=== PATIENT | male | born 1965 | race African-American/Black ===

== ENCOUNTER 2018-11-11 12:39 | Inpatient (IN) | payer OTHER | END 2018-11-15 12:40 | disposition other institution (70) | LOC: YASAS 12:39 → Y6N 16:30 ==

== ENCOUNTER 2018-11-15 12:44 | Inpatient (IN) | payer OTHER ==
[2018-11-15] MEDS ORDERED: P-EPHED 60MG/TRIPROLIDI 2.5MG TABLET PO PRN (15:30)
[2018-11-15] MEDS ORDERED: LOPERAMIDE HCL 2 MG CAPSULE PO PRN (15:30)
[2018-11-15] MEDS ORDERED: MENTHOL/PHENOL 1 EACH UD MM PRN (15:30)
[2018-11-15] MEDS ORDERED: hydrOXYzine PAMOATE 50 MG CAPSULE (FP) PO PRN (15:30)
[2018-11-15] MEDS ORDERED: MAGNESIUM HYDROX 2400MG/30ML ORAL SUSPENSION 30 ML CUP PO PRN (15:30)
[2018-11-15] MEDS ORDERED: NICOTINE POLACRILEX 4 MG GUM BUC PRN (15:30)
[2018-11-15] MEDS ORDERED: guaiFENesin 200 MG/10 ML 10 ML UNIT-DOSE CUPS PO PRN (15:30)
[2018-11-15] MEDS ORDERED: IBUPROFEN 400 MG TABLET (FP) PO PRN (15:30)
[2018-11-15] MEDS ORDERED: ACETAMINOPHEN 325 MG TABLET (FP) PO PRN (15:30)
[2018-11-15] MEDS ORDERED: MAGNESIUM CITRATE 300 ML BOTTLE PO PRN (15:30)
--- NOTE | 2018-11-15 15:43 | HP ---
JUDY [facility] Rehab Assess/Revision - Admission History Ad[facility]hab [facility] - Findings Detox History & Physical reviewed: Yes Concur with findings: Yes Inpatient Rehab Admission - Rehab Decision to Admit Inpatient rehab admission?: Yes - Initial Determination Are CD services needed?: Yes Free of communicable disease: Yes Not in need of hospitalization: Yes - Rehab Admission Criteria Previous failed treatment: Yes Poor recovery environment: Yes Comorbidities: Yes Lacks judgement: Yes Patient is meeting Inpatient Rehab admission criteria:: Yes
[2018-11-15] MEDS: MELATONIN 5 MG TABLETS PO PRN (21:40)
[2018-11-15] MEDS: risperiDONE 2 MG TABLET PO SCH (21:40)
[2018-11-15] MEDS: THIAMINE HCL 100 MG TABLET (FP) PO SCH (21:40)
[2018-11-16] MEDS: risperiDONE 2 MG TABLET PO SCH ×2 (10:30→21:09)
[2018-11-16] MEDS: NICOTINE 21 MG/24 HOURS TOPICAL PATCH TD SCH ×2 (10:30→10:40)
[2018-11-16] MEDS: PRENATAL VITAMINS W/ FOLIC ACID TABLET (FP) PO SCH (10:30)
[2018-11-16] MEDS: MELATONIN 5 MG TABLETS PO PRN (21:09)
[2018-11-16] MEDS: THIAMINE HCL 100 MG TABLET (FP) PO SCH (21:09)
[2018-11-16] MEDS: MAG HYDROX/AL HYDROX/SIMETH 30 ML UNIT-DOSE CUP PO PRN (21:40)
[2018-11-17] MEDS: risperiDONE 2 MG TABLET PO SCH ×2 (11:00→21:17)
[2018-11-17] MEDS: PRENATAL VITAMINS W/ FOLIC ACID TABLET (FP) PO SCH (11:00)
[2018-11-17] MEDS: NICOTINE 21 MG/24 HOURS TOPICAL PATCH TD SCH (12:42)
[2018-11-17] MEDS: THIAMINE HCL 100 MG TABLET (FP) PO SCH (21:16)
[2018-11-17] MEDS: MELATONIN 5 MG TABLETS PO PRN (21:16)
[2018-11-17] MEDS: MAG HYDROX/AL HYDROX/SIMETH 30 ML UNIT-DOSE CUP PO PRN (23:05)
[2018-11-18] MEDS: NICOTINE 21 MG/24 HOURS TOPICAL PATCH TD SCH (11:08)
[2018-11-18] MEDS: PRENATAL VITAMINS W/ FOLIC ACID TABLET (FP) PO SCH (11:09)
[2018-11-18] MEDS: risperiDONE 2 MG TABLET PO SCH ×2 (11:09→21:50)
[2018-11-18] MEDS: MELATONIN 5 MG TABLETS PO PRN (21:50)
[2018-11-18] MEDS: THIAMINE HCL 100 MG TABLET (FP) PO SCH (21:50)
[2018-11-19] MEDS: NICOTINE 21 MG/24 HOURS TOPICAL PATCH TD SCH (10:59)
[2018-11-19] MEDS: PRENATAL VITAMINS W/ FOLIC ACID TABLET (FP) PO SCH (10:59)
[2018-11-19] MEDS: risperiDONE 2 MG TABLET PO SCH ×2 (10:59→21:19)
[2018-11-19] MEDS: THIAMINE HCL 100 MG TABLET (FP) PO SCH (21:19)
[2018-11-19] MEDS: MELATONIN 5 MG TABLETS PO PRN (21:19)
[2018-11-20 07:29] VITALS: BP 153/93; PULSE 65; TEMP 97.5
--- NOTE | 2018-11-20 09:01 | PN ---
S Progress Note Note: Psychiatric nurse practitioner note: Patient scheduled for discharge today. A 30 day prescription of Risperdal 2mg BID ( #60 tablets) was sent to [facility], [place] [address].
--- NOTE | 2018-11-20 13:05 | PN ---
[facility] Progress Note Note: PATIENT REQUESTED TO SIGN OUT AMA. PATIENT STATED " I AM LEAVING TO [place] AND HAVE TO GO HOME TODAY". PATIENT ENCOURAGED TO COMPLETE TREATMENT TO PREVENT RELAPSE AND EXPLAINED RISK FACTORS ASSOCIATED WITH SIGNING OUT AMA. PATIENT REFUSED TO STAY IN TREATMENT AND INFORMED PUBLIC SERVICES LIBRARIAN HE WILL FOLLOW UP WITH A PROGRAM IN IN. PATIENT ENCOURAGED TO ATTEND GROUP MEETINGS WITH NA/AA AND FOLLOW UP WITH PCP TO CONTINUE MEDICAL MANAGEMENT. Vital Signs Period Temp Pulse Resp BP Sys/Juarez Pulse Ox Last 24 Hr 97.5 F 65 18-18 153/93 Ambulatory Orders Risperidone [Risperdal] 2 mg PO BID 11/11/18 Risperidone [Risperdal -] 2 mg PO BID #60 tablet 11/20/18
== END 2018-11-20 09:03 | disposition left against medical advice (07) | DRG 770 ==
LOC: YASAS 12:44 → Y3W 12:45
PROVIDERS: ADMIT Neuromusculoskeletal Medicine & OMM; ATTEND Neuromusculoskeletal Medicine & OMM
PROC: HZ42ZZZ Group Counseling for Substance Abuse Treatment, Cognitive-Behavioral (ICD-10-PCS; principal; 2018-11-15)
DX: F10.20 Alcohol dependence, uncomplicated (principal); F14.20 Cocaine dependence, uncomplicated; F12.20 Cannabis dependence, uncomplicated
CPT/HCPCS: 71046-TC-FY

== ENCOUNTER 2018-12-11 09:00 | Inpatient (IN) | payer SELFPAY ==
[2018-12-11 09:48] VITALS: BMI 25.2
--- NOTE | 2018-12-11 10:53 | HP ---
CIWA Score Nausea/Vomitin Muscle Tremors: 2 Anxiety: 2 Agitation: 2 Paroxysmal Sweats: 1-Minimal Palms Moist Orientation: 0-Oriented Tacttile Disturbances: 1-Very Mild Itch/Numbness Auditory Disturbances: 1-Very Mild Visual Disturbances: 0-None Headache: 2-Mild CIWA-Ar Total Score: 13 - Admission Criteria OASAS Guidelines: Admission for Medically Managed Detox: Requires at least one of the followin. CIWA greater than 12 2. Seizures within the past 24 hours 3. Delirium tremens within the past 24 hours 4. Hallucinations within the past 24 hours 5. Acute intervention needed for co occurring medical disorder 6. Acute intervention needed for co occurring psychiatric disorder 7. Severe withdrawal that cannot be handled at a lower level of care (continued vomiting, continued diarrhea, abnormal vital signs) requiring intravenous medication and/or fluids 8. Admission ROS S - HPI Chief Complaint: i need help to stop drinking alcohol,heroin,cocaine Allergies/Adverse Reactions: Allergies Allergy/AdvReac Type Severity Reaction Status Date / Time No Known Allergies Allergy Verified 12/11/18 09:38 History of Present Illness: this 53 years old male with heroin,alcohol and cocaine dependence,seeking detox, withdrawal symptom, last detox 11/11/18 to [facility] ,rehab 11/15/18 to 11/20/18 not completed due to fmily emrgency nicotine dependence 6 cigarette,does not want nicotine replacement longest sobriety 6 years ago bipolar disorder,schizophrenia,ptsd seen in [facility] plan for rehab after detox Exam Limitations: No Limitations - Ebola screening Have you traveled outside of the country in the last 21 days: No (N) Have you had contact with anyone from an Ebola affected area: No Do you have a fever: No - Review of Systems Constitutional: Chills, Loss of Appetite, Malaise, Night Sweats, Changes in sleep, Weakness, Unintentional Wgt. Loss EENT: reports: Tearing, Nose Congestion Respiratory: reports: No Symptoms reported Cardiac: reports: No Symptoms Reported GI: reports: Diarrhea, Nausea, Vomiting, Abdominal cramping : reports: No Symptoms Reported Musculoskeletal: reports: Back Pain, Joint Pain, Muscle Pain, Joint Stiffness Integumentary: reports: Dryness Neuro: reports: Headache, Tremors Endocrine: reports: No Symptoms Reported Hematology: reports: No Symptoms Reported Psychiatric: reports: No Sypmtoms Reported, Judgement Intact, Mood/Affect Appropiate, Orientated x3, Anxious, Depressed, other (bipolar,schizophrenia,ptsd ) Patient History - Patient Medical History Hx Anemia: No Hx Asthma: No Hx Chronic Obstructive Pulmonary Disease (COPD): No Hx Cancer: No Hx Cardiac Disorders: No Hx Congestive Heart Failure: No Hx Hypertension: Yes (no med) Hx Hypercholesterolemia: No Hx Pacemaker: No HX Cerebrovascular Accident: No Hx Seizures: No Hx Dementia: No Hx Diabetes: No Hx Gastrointestinal Disorders: No Hx Liver Disease: No Hx Genitourinary Disorders: No Hx Sexually Transmitted Disorders: No Hx Renal Disease (ESRD): No Hx Thyroid Disease: No Hx Human Immunodeficiency Virus (HIV): No (last 11/19 negative) Hx Hepatitis C: No Hx Depression: No Hx Suicide Attempt: No Hx Bipolar Disorder: Yes Hx Schizophrenia: Yes Other Medical History: no suicidal,no homicidal - Patient Surgical History Past Surgical History: No Hx Neurologic Surgery: No Hx Cataract Extraction: No Hx Cardiac Surgery: No Hx Lung Surgery: No Hx Breast Surgery: No Hx Breast Biopsy: No Hx Abdominal Surgery: No Hx Appendectomy: No Hx Cholecystectomy: No Hx Genitourinary Surgery: No Hx Section: No Hx Orthopedic Surgery: No Anesthesia Reaction: No - PPD History Previous Implant?: Yes Documented Results: Positive w/proof Results: cxr11/15/18 neg PPD to be Administered?: No - Smoking Cessation Smoking history: Current every day smoker Have you smoked in the past 12 months: Yes Cigars Per Day: 10 Hx Chewing Tobacco Use: No Initiated information on smoking cessation: Yes 'Breaking Loose' booklet given: 12/11/18 - Substance & Tx. History Hx Alcohol Use: Yes Hx Substance Use: Yes Substance Use Type: Alcohol, Cocaine, Heroin, Marijuana Hx Substance Use Treatment: Yes ([facility] 11/11/18 to 11/15/18,rehab 11/15/18 to not completed) - Substances abused Heroin Substance route: Inhalation Frequency: Daily Amount used: 2 bags Age of first use: 21 Date of last use: 11/10/18 Crack Substance route: Smoking Frequency: Daily Amount used: $200 Age of first use: 21 Date of last use: 11/10/18 Alcohol Substance route: Oral Frequency: Daily Amount used: 1 pint Age of first use: 13 Date of last use: 11/10/18 Marijuana/Hashish Substance route: Smoking Frequency: Daily Amount used: 40$ Age of first use: 13 Date of last use: 11/11/18 Cocaine Substance route: Inhalation Frequency: Daily Amount used: 1/2 gram Age of first use: 16 Date of last use: 12/10/18 Family Disease History - Family Disease History Family History: Denies Admission Physical Exam [facility] - Vital Signs Vital Signs: Vital Signs - 24 hr 12/11/18 09:35 Temperature 98.3 F Pulse Rate 51 L Respiratory 17 Rate Blood Pressure 141/87 - Physical General Appearance: Yes: Moderate Distress, Tremorous, Irritable, Sweating, Anxious HEENTM: Yes: Normal ENT Inspection, Normocephalic, RAJAN, Pharynx Normal Respiratory: Yes: Within Normal Limits, Lungs Clear, Normal Breath Sounds Neck: Yes: Within Normal Limits, Supple, Trachea in good position Breast: Yes: Within Normal Limits Cardiology: Yes: S1, S2, Bradycardia Abdominal: Yes: Within Normal Limits, Normal Bowel Sounds, Non Tender, Flat, Soft Genitourinary: Yes: Within Normal Limits Back: Yes: Muscle Spasm Musculoskeletal: Yes: full range of Motion, Back pain, Muscle Pain Extremities: Yes: Tremors Neurological: Yes: top collar maker II-XII NML intact, Fully Oriented, Alert, Motor Strength 5/5 Integumentary: Yes: Dry Lymphatic: Yes: Within Normal Limits - Diagnostic (1) Alcohol dependence with uncomplicated withdrawal Current Visit: Yes Status: Acute (2) Dehydration Current Visit: No Status: Acute (3) Schizophrenia Current Visit: Yes Status: Chronic (4) Weight loss Current Visit: No Status: Acute (5) Cannabis dependence Current Visit: Yes Status: Chronic (6) Cocaine dependence Current Visit: Yes Status: Chronic Qualifiers: Substance use status: uncomplicated Qualified Code(s): F14.20 - Cocaine dependence, uncomplicated (7) Heroin abuse Current Visit: Yes Status: Acute (8) Weight loss Current Visit: Yes Status: Acute (9) Nicotine dependence Current Visit: Yes Status: Chronic Cleared for Admission [facility] - Detox or Rehab [facility] Level of Care: Medically Managed Detox Regimen/Protocol: Librium Breathalyzer - Breathalyzer Breathalyzer: 0 Urine Drug Screen - Test Device Lot number: [id number] Expiration date: 08/31/20 - Control Is test valid?: Yes - Results Drug screen NEGATIVE: No Urine drug screen results: ZION-Cocaine, BZO-Benzodiazepines Inpatient Rehab Admission - Rehab Decision to Admit Inpatient rehab admission?: No
[2018-12-11] MEDS ORDERED: MAG HYDROX/AL HYDROX/SIMETH 30 ML UNIT-DOSE CUP PO PRN (11:03)
[2018-12-11] MEDS ORDERED: MAGNESIUM CITRATE 300 ML BOTTLE PO PRN (11:03)
[2018-12-11] MEDS ORDERED: hydrOXYzine PAMOATE 25 MG CAPSULE (FP) PO PRN (11:03)
[2018-12-11] MEDS ORDERED: MAGNESIUM HYDROX 2400MG/30ML ORAL SUSPENSION 30 ML CUP PO PRN (11:03)
[2018-12-11] MEDS ORDERED: IBUPROFEN 400 MG TABLET (FP) PO PRN (11:03)
[2018-12-11] MEDS ORDERED: MENTHOL/PHENOL 1 EACH UD MM PRN (11:03)
[2018-12-11] MEDS ORDERED: BISMUTH SUBSALICYLATE 262 MG/15 ML BTL PO PRN (11:03)
[2018-12-11] MEDS ORDERED: METHOCARBAMOL 500 MG TABLET PO PRN (11:03)
[2018-12-11] MEDS ORDERED: chlordiazePOXIDE HCL 25 MG CAPSULE PO PRN (11:03)
[2018-12-11] MEDS ORDERED: ACETAMINOPHEN 325 MG TABLET (FP) PO PRN ×2 (11:03)
[2018-12-11] MEDS ORDERED: NICOTINE POLACRILEX 2 MG GUM BUC PRN (11:03)
[2018-12-11] MEDS ORDERED: cloNIDine HCL 0.1 MG TABLET PO PRN (12:01)
--- NOTE | 2018-12-11 13:18 | PN ---
[facility] Progress Note Note: 53 years old male admitted for alcohol withdrawal stabilization no history of hypertension be elevation upon admission offer librium prn and order clonidin 0.1 mg po prn continue bp monitoring
[2018-12-11 14:59] LABS: ALBUMIN 3.5 g/dl (3.4-5.0); BILIRUBIN,TOTAL 0.3 mg/dL (0.2-1); BLOOD UREA NITROGEN 9.1 mg/dL (7-18); CALCIUM 8.6 mg/dL (8.5-10.1); CREATININE 1.1 mg/dL (0.55-1.3); TOT PROT 7.1 g/dl (6.4-8.2)
[2018-12-11 15:14] LABS: HEMATOCRIT 37.8 % (35.4-49); HEMOGLOBIN 12.1 GM/dL (11.7-16.9); MCH 27.4 pg (25.7-33.7); MEAN CELL VOLUME 85.6 fl (80-96); MEAN PLT VOLUME 11.1 fl (7.5-11.1); PLATELET COUNT 140 K/MM3 (134-434); RBC 4.42 M/mm3 (4.00-5.60); RDW 14.3 % (11.9-15.9); WHITE BLOOD COUNT 4.7 K/mm3 (4.0-10.0)
--- NOTE | 2018-12-11 15:38 | CONSULT ---
[facility] Psychiatric Consult - Data Date of interview: 12/11/18 Admission source: [facility] Identifying data: Readmission to [facility] for this 53 y/o AA male self- referred for detoxification (heroin, alcohol, cannabis, cocaine). Examined at [address] [place] [address]. Patient is hostile, easily irritable and marginally cooperative. Mr Victoria declines to provide personal information. Demographic data are extracted from recent records at [facility] : patient is , a father of six, homeless, unemployed and supported on undisclosed means. Substance Abuse History: Patient declines to discuss his substance abuse profile in this session. Information is taken from the chart ([facility] report) : Smoking history: Current every day smoker. Have you smoked in the past 12 months: Yes. Cigars Per Day: 10. Hx Chewing Tobacco Use: No. Initiated information on smoking cessation: Yes. 'Breaking Loose' booklet given: . - Substance & Tx. History. Hx Alcohol Use: Yes. Hx Substance Use: Yes. Substance Use Type: Alcohol, Cocaine, Heroin, Marijuana. Hx Substance Use Treatment: Yes ([facility] 11/11/18 to 11/15/18,rehab 11/15/18 to 11/20/18 not completed). - Substances abused. Heroin. Substance route: Inhalation. Frequency: Daily. Amount used: 2 bags. Age of first use: 21. Date of last use : 11/10/18. Crack. Substance route: Smoking. Frequency: Daily. Amount used: $200. Age of first use: 21. Date of last use: 11/10/18. Alcohol. Substance route: Oral. Frequency: Daily. Amount used: 1 pint. Age of first use: 13. Date of last use: 11/10/18. Marijuana/Hashish. Substance route: Smoking. Frequency: Daily. Amount used: 40$. Age of first use: 13. Date of last use: 11/11/18. Cocaine. Substance route: Inhalation. Frequency: Daily. Amount used: 1/2 gram. Age of first use: 16. Date of last use: Medical History: Patient denies medical problems. Endorses good general health. Psychiatric History: Patient reveals a past history of a psychiatric hospitalization at [facility]. He endorses the diagnoses of " Bipolar Disorder with Schizophrenia and PTSD ". Mr Victoria denies going to a psychiatrist in the community for OPD care. Patient was discharged (AMA) from [facility] in November 2018 on a regimen of risperidone 2 mg po bid. Non-adherence to medications is reported by the patient. Denies history of suicide attempts. Physical/Sexual Abuse/Trauma History: No information. Patient declines to answer questions. Additional Comment: Urine drug screen results: ZION-Cocaine, BZO- Benzodiazepines. Noted. Mental Status Exam - Mental Status Exam Alert and Oriented to: Time, Place, Person Cognitive Function: Grossly Intact Patient Appearance: Unkempt, Disheveled Mood: Angry, Hostile, Withdrawn, Irritable Affect: Mood Congruent, Blunted Patient Behavior: Passive, Fatigued, Uncooperative Speech Pattern: Clear (patient is coherent but he simply refuses to engage in conversation ; provides brief, sporadic answers) Voice Loudness: Normal Thought Process: Goal Oriented Hallucinations: Denies Suicidal Ideation: Denies Homicidal Ideation: Denies Insight/Judgement: Poor Sleep: Well Appetite: Good Gait/Station: Other (seen resting in bed ; not observed walking, by this policy writer , since arrival on the unit) Psychiatric Findings - Problem List ([place] 1, 2,3) (1) Alcohol dependence with uncomplicated withdrawal Current Visit: Yes Status: Acute (2) Heroin dependence Current Visit: Yes Status: Chronic (3) Cannabis dependence Current Visit: Yes Status: Chronic (4) Cocaine dependence Current Visit: Yes Status: Chronic Qualifiers: Substance use status: uncomplicated Qualified Code(s): F14.20 - Cocaine dependence, uncomplicated (5) Nicotine dependence Current Visit: Yes Status: Chronic (6) Substance induced mood disorder Current Visit: Yes Status: Suspected (7) Schizophrenia Current Visit: Yes Status: Chronic (8) Non-compliance Current Visit: Yes Status: Chronic - Initial Treatment Plan Initial Treatment Plan: Psychoeducation. Sleep hygiene. Detoxification. Patient did verbalize request for risperdal. Side effects/benefits are briefly explained to the patient. " I never had any problems with risperdal ". Risperdal 1 mg po bid. Ordered. Patient verbally consented to resuming risperdal. Support. NA/AA meetings. Observation.
[2018-12-11] MEDS: chlordiazePOXIDE HCL 25 MG CAPSULE PO SCH ×2 (16:41→22:06)
[2018-12-11 18:53] LABS: EPI CELLS 6.9 /HPF (0-5/HPF); HYALINE CASTS 35 /lpf (0-8); PH,URINE 5.5 (5.0-8.0); URINE APPEARANCE TURBID; URINE BACTERIA 18.5 /hpf (NEGATIVE); URINE BILIRUBIN NEGATIVE (NEGATIVE); URINE COLOR YELLOW; URINE GLUCOSE (UA) NEGATIVE (NEGATIVE); URINE KETONE NEGATIVE (NEGATIVE); URINE LEUK ESTERASE TRACE (NEGATIVE); URINE NITRITE NEGATIVE (NEGATIVE); URINE PROTEIN NEGATIVE (NEGATIVE); URINE RBC 3 /hpf (0-4); URINE WBC 7 /hpf (0-5)
[2018-12-11 19:50] LABS: URINE CRYSTALS AMORPHOUS URATES /hpf
[2018-12-11] MEDS: THIAMINE HCL 100 MG TABLET (FP) PO SCH (22:06)
[2018-12-11] MEDS: risperiDONE 1 MG TABLET (FP) PO SCH (22:06)
[2018-12-11] MEDS: MELATONIN 5 MG TABLETS PO PRN (22:07)
[2018-12-12] MEDS: chlordiazePOXIDE HCL 25 MG CAPSULE PO SCH ×4 (05:53→22:12)
[2018-12-12] MEDS: NICOTINE 21 MG/24 HOURS TOPICAL PATCH TD SCH (10:44)
[2018-12-12] MEDS: risperiDONE 1 MG TABLET (FP) PO SCH ×2 (10:44→22:12)
[2018-12-12] MEDS: PRENATAL VITAMINS W/ FOLIC ACID TABLET (FP) PO SCH (10:44)
--- NOTE | 2018-12-12 15:26 | PN ---
[facility] CIWA - CIWA Score Nausea/Vomitin-No Nausea/No Vomiting Muscle Tremors: None Anxiety: 2 Agitation: 0-Normal Activity Paroxysmal Sweats: 3 Orientation: 0-Oriented Tacttile Disturbances: 2-Mild Itch/Numbness/Burn Auditory Disturbances: 2-Mild Harshness/Frighten Visual Disturbances: 2-Mild Sensitivity Headache: 0-None Present CIWA-Ar Total Score: 11 S Progress Note (SOAP) Subjective: Sweating, Body Aches, Fatigue. Objective: PATIENT A & O X 3. IN NO ACUTE DISTRESS. PATIENT REPORTS HISTORY OF HTN,, BUT DENIES HISTORY OF MEDICATION FOR HTN. 12/12/18 15:25 Vital Signs Temperature 96.4 F L 12/12/18 13:37 Pulse Rate 84 12/12/18 13:37 Respiratory Rate 18 12/12/18 13:37 Blood Pressure 126/78 12/12/18 13:37 O2 Sat by Pulse Oximetry (%) Laboratory Tests 12/11/18 12/11/18 12/11/18 11:40 11:40 11:40 WBC 4.7 RBC 4.42 Hgb 12.1 Hct 37.8 MCV 85.6 MCH 27.4 MCHC 32.0 RDW 14.3 Plt Count 140 MPV 11.1 Sodium 139 Potassium 4.0 Chloride 105 Carbon Dioxide 30 Anion Gap 3 L BUN 9.1 Creatinine 1.1 Est GFR (CKD-EPI)AfAm 88.98 Est GFR (CKD-EPI)NonAf 76.77 Random Glucose 88 Calcium 8.6 Total Bilirubin 0.3 AST 19 ALT 21 Alkaline Phosphatase 56 Total Protein 7.1 Albumin 3.5 Urine Color Urine Appearance Urine pH Ur Specific [place] Urine Protein Urine Glucose (UA) Urine Ketones Urine Blood Urine Nitrite Urine Bilirubin Urine Urobilinogen Ur Leukocyte Esterase Urine WBC (Auto) Urine RBC (Auto) Urine Casts (Auto) U Epithel Cells (Auto) Urine Crystals (Auto) Urine Bacteria (Auto) RPR Titer Nonreactive 12/11/18 16:37 WBC RBC Hgb Hct MCV MCH MCHC RDW Plt Count MPV Sodium Potassium Chloride Carbon Dioxide Anion Gap BUN Creatinine Est GFR (CKD-EPI)AfAm Est GFR (CKD-EPI)NonAf Random Glucose Calcium Total Bilirubin AST ALT Alkaline Phosphatase Total Protein Albumin Urine Color Yellow Urine Appearance Turbid Urine pH 5.5 Ur Specific [place] 1.037 H Urine Protein Negative Urine Glucose (UA) Negative Urine Ketones Negative Urine Blood Negative Urine Nitrite Negative Urine Bilirubin Negative Urine Urobilinogen 1.0 Ur Leukocyte Esterase Trace Urine WBC (Auto) 7 Urine RBC (Auto) 3 Urine Casts (Auto) 35 U Epithel Cells (Auto) 6.9 Urine Crystals (Auto) Amorphous urates Urine Bacteria (Auto) 18.5 RPR Titer LABS NOTED. 12/12/18 15:28 Assessment: 12/12/18 15:27 WITHDRAWAL SYMPTOMS. HYPERTENSION. 12/12/18 15:29 Plan: CONTINUE DETOX. CLONIDINE, 0.1 MG PO PRN ELEVATED BLOOD PRESSURE. CONTINUE TO MONITOR BLOOD PRESSURE.
[2018-12-12] MEDS: THIAMINE HCL 100 MG TABLET (FP) PO SCH (22:12)
[2018-12-13] MEDS: chlordiazePOXIDE HCL 25 MG CAPSULE PO SCH ×2 (05:10→10:54)
[2018-12-13] MEDS: PRENATAL VITAMINS W/ FOLIC ACID TABLET (FP) PO SCH (10:54)
[2018-12-13] MEDS: risperiDONE 1 MG TABLET (FP) PO SCH ×2 (10:54→21:37)
[2018-12-13] MEDS: NICOTINE 21 MG/24 HOURS TOPICAL PATCH TD SCH (10:54)
--- NOTE | 2018-12-13 15:23 | PN ---
S CIWA - CIWA Score Nausea/Vomitin-No Nausea/No Vomiting Muscle Tremors: None Anxiety: 2 Agitation: 0-Normal Activity Paroxysmal Sweats: 3 Orientation: 0-Oriented Tacttile Disturbances: 2-Mild Itch/Numbness/Burn Auditory Disturbances: 0-None Visual Disturbances: 2-Mild Sensitivity Headache: 0-None Present CIWA-Ar Total Score: 9 [facility] Progress Note (SOAP) Subjective: Sweating, Body Aches, Fatigue. Objective: PATIENT A & O X 3. IN NO ACUTE DISTRESS. 12/13/18 15:21 Vital Signs Temperature 99.0 F 12/13/18 13:51 Pulse Rate 69 12/13/18 13:51 Respiratory Rate 18 12/13/18 13:51 Blood Pressure 176/92 H 12/13/18 13:51 O2 Sat by Pulse Oximetry (%) Laboratory Tests 12/11/18 12/11/18 12/11/18 11:40 11:40 11:40 WBC 4.7 RBC 4.42 Hgb 12.1 Hct 37.8 MCV 85.6 MCH 27.4 MCHC 32.0 RDW 14.3 Plt Count 140 MPV 11.1 Sodium 139 Potassium 4.0 Chloride 105 Carbon Dioxide 30 Anion Gap 3 L BUN 9.1 Creatinine 1.1 Est GFR (CKD-EPI)AfAm 88.98 Est GFR (CKD-EPI)NonAf 76.77 Random Glucose 88 Calcium 8.6 Total Bilirubin 0.3 AST 19 ALT 21 Alkaline Phosphatase 56 Total Protein 7.1 Albumin 3.5 Urine Color Urine Appearance Urine pH Ur Specific [place] Urine Protein Urine Glucose (UA) Urine Ketones Urine Blood Urine Nitrite Urine Bilirubin Urine Urobilinogen Ur Leukocyte Esterase Urine WBC (Auto) Urine RBC (Auto) Urine Casts (Auto) U Epithel Cells (Auto) Urine Crystals (Auto) Urine Bacteria (Auto) RPR Titer Nonreactive 12/11/18 16:37 WBC RBC Hgb Hct MCV MCH MCHC RDW Plt Count MPV Sodium Potassium Chloride Carbon Dioxide Anion Gap BUN Creatinine Est GFR (CKD-EPI)AfAm Est GFR (CKD-EPI)NonAf Random Glucose Calcium Total Bilirubin AST ALT Alkaline Phosphatase Total Protein Albumin Urine Color Yellow Urine Appearance Turbid Urine pH 5.5 Ur Specific [place] 1.037 H Urine Protein Negative Urine Glucose (UA) Negative Urine Ketones Negative Urine Blood Negative Urine Nitrite Negative Urine Bilirubin Negative Urine Urobilinogen 1.0 Ur Leukocyte Esterase Trace Urine WBC (Auto) 7 Urine RBC (Auto) 3 Urine Casts (Auto) 35 U Epithel Cells (Auto) 6.9 Urine Crystals (Auto) Amorphous urates Urine Bacteria (Auto) 18.5 RPR Titer LABS NOTED. Assessment: 12/13/18 15:22 WITHDRAWAL SYMPTOMS. ELEVATED BLOOD PRESSURE (INTERMITTENT). 12/13/18 15:22 Plan: CONTINUE DETOX. CONTINUE TO MONITOR BLOOD PRESSURE. PRN CLOINIDINE PO FOR ELEVATED BLOOD PRESSURE.
[2018-12-13] MEDS ORDERED: chlordiazePOXIDE HCL 10 MG CAPSULE PO PRN (17:00)
[2018-12-13] MEDS: chlordiazePOXIDE HCL 10 MG CAPSULE PO SCH ×2 (17:13→22:31)
[2018-12-13] MEDS: THIAMINE HCL 100 MG TABLET (FP) PO SCH (21:37)
[2018-12-13] MEDS: MELATONIN 5 MG TABLETS PO PRN (22:12)
[2018-12-14] MEDS: chlordiazePOXIDE HCL 10 MG CAPSULE PO SCH ×3 (06:47→17:33)
[2018-12-14] MEDS: NICOTINE 21 MG/24 HOURS TOPICAL PATCH TD SCH (11:30)
[2018-12-14] MEDS: PRENATAL VITAMINS W/ FOLIC ACID TABLET (FP) PO SCH (11:30)
[2018-12-14] MEDS: risperiDONE 1 MG TABLET (FP) PO SCH ×2 (11:31→22:31)
--- NOTE | 2018-12-14 15:08 | PN ---
S CIWA - CIWA Score Nausea/Vomitin-No Nausea/No Vomiting Muscle Tremors: None Anxiety: 1-Mildly Anxious Agitation: 0-Normal Activity Paroxysmal Sweats: No Perspiration Orientation: 0-Oriented Tacttile Disturbances: 1-Very Mild Itch/Numbness Auditory Disturbances: 0-None Visual Disturbances: 2-Mild Sensitivity Headache: 0-None Present CIWA-Ar Total Score: 4 [facility] Progress Note (SOAP) Subjective: Fatigue. Patient Reports that He Feels well Overall. Objective: PATIENT A & O X 3, OBSERVED AMBULATING ON UNIT UNASSISTED. IN NO ACUTE DISTRESS. 12/14/18 15:09 Vital Signs Temperature 98.3 F 12/14/18 13:17 Pulse Rate 55 L 12/14/18 13:17 Respiratory Rate 18 12/14/18 13:17 Blood Pressure 172/94 H 12/14/18 13:17 O2 Sat by Pulse Oximetry (%) Laboratory Tests 12/11/18 12/11/18 12/11/18 11:40 11:40 11:40 WBC 4.7 RBC 4.42 Hgb 12.1 Hct 37.8 MCV 85.6 MCH 27.4 MCHC 32.0 RDW 14.3 Plt Count 140 MPV 11.1 Sodium 139 Potassium 4.0 Chloride 105 Carbon Dioxide 30 Anion Gap 3 L BUN 9.1 Creatinine 1.1 Est GFR (CKD-EPI)AfAm 88.98 Est GFR (CKD-EPI)NonAf 76.77 Random Glucose 88 Calcium 8.6 Total Bilirubin 0.3 AST 19 ALT 21 Alkaline Phosphatase 56 Total Protein 7.1 Albumin 3.5 Urine Color Urine Appearance Urine pH Ur Specific [place] Urine Protein Urine Glucose (UA) Urine Ketones Urine Blood Urine Nitrite Urine Bilirubin Urine Urobilinogen Ur Leukocyte Esterase Urine WBC (Auto) Urine RBC (Auto) Urine Casts (Auto) U Epithel Cells (Auto) Urine Crystals (Auto) Urine Bacteria (Auto) RPR Titer Nonreactive 12/11/18 16:37 WBC RBC Hgb Hct MCV MCH MCHC RDW Plt Count MPV Sodium Potassium Chloride Carbon Dioxide Anion Gap BUN Creatinine Est GFR (CKD-EPI)AfAm Est GFR (CKD-EPI)NonAf Random Glucose Calcium Total Bilirubin AST ALT Alkaline Phosphatase Total Protein Albumin Urine Color Yellow Urine Appearance Turbid Urine pH 5.5 Ur Specific [place] 1.037 H Urine Protein Negative Urine Glucose (UA) Negative Urine Ketones Negative Urine Blood Negative Urine Nitrite Negative Urine Bilirubin Negative Urine Urobilinogen 1.0 Ur Leukocyte Esterase Trace Urine WBC (Auto) 7 Urine RBC (Auto) 3 Urine Casts (Auto) 35 U Epithel Cells (Auto) 6.9 Urine Crystals (Auto) Amorphous urates Urine Bacteria (Auto) 18.5 RPR Titer LABS NOTED. Assessment: 12/14/18 15:10 WITHDRAWAL SYMPTOMS. Plan: CONTINUE DETOX. CLONIDINE, 0.1 MG PO X 1 DOSE FOR ELEVATED BLOOD PRESSURE. PATIENT SCHEDULED FOR D/C TOMORROW.
[2018-12-14] MEDS ORDERED: cloNIDine HCL 0.1 MG TABLET PO ONE (15:10)
[2018-12-14] MEDS: MELATONIN 5 MG TABLETS PO PRN (22:31)
[2018-12-14] MEDS: THIAMINE HCL 100 MG TABLET (FP) PO SCH (22:31)
[2018-12-15 06:13] VITALS: BP 143/81; PULSE 51; TEMP 97.8
[2018-12-15] MEDS: chlordiazePOXIDE HCL 10 MG CAPSULE PO SCH (06:34)
--- NOTE | 2018-12-15 16:15 | DS ---
[facility] Detox Discharge Summary Admission Date: 12/11/18 Discharge Date: 12/15/18 - History Present History: Alcohol Dependence, Cannabis Dependence, Cocaine Dependence, Opioid Dependence Additional Comments: PATIENT LEFT DETOX UNIT EARLY IN AM PRIOR TO TIME OF ARRIVAL OF FIELD SERVICE ENGINEER ON DETOX UNIT. PRE-DISCHARGE MEDICAL ASSESSMENT UNABLE TO BE DONE. PER BUFF WHEEL FABRICATOR Shine ALEXIS, PATIENT REFERRED TO [facility] ([facility], [place]) FOR AFTERCARE. Pertinent Past History: HTN, Bipolar Disorder, Nicotine Dependence, Schizophrenia, P.T.S.D., Dehydration , Weight Loss. - Physical Exam Results Vital Signs: Vital Signs Temperature 97.8 F 12/15/18 06:13 Pulse Rate 51 L 12/15/18 06:13 Respiratory Rate 18 12/15/18 06:13 Blood Pressure 143/81 12/15/18 06:13 O2 Sat by Pulse Oximetry (%) Pertinent Admission Physical Exam Findings: WITHDRAWAL SYMPTOMS. Laboratory Tests 12/11/18 12/11/18 12/11/18 11:40 11:40 11:40 WBC 4.7 RBC 4.42 Hgb 12.1 Hct 37.8 MCV 85.6 MCH 27.4 MCHC 32.0 RDW 14.3 Plt Count 140 MPV 11.1 Sodium 139 Potassium 4.0 Chloride 105 Carbon Dioxide 30 Anion Gap 3 L BUN 9.1 Creatinine 1.1 Est GFR (CKD-EPI)AfAm 88.98 Est GFR (CKD-EPI)NonAf 76.77 Random Glucose 88 Calcium 8.6 Total Bilirubin 0.3 AST 19 ALT 21 Alkaline Phosphatase 56 Total Protein 7.1 Albumin 3.5 Urine Color Urine Appearance Urine pH Ur Specific [place] Urine Protein Urine Glucose (UA) Urine Ketones Urine Blood Urine Nitrite Urine Bilirubin Urine Urobilinogen Ur Leukocyte Esterase Urine WBC (Auto) Urine RBC (Auto) Urine Casts (Auto) U Epithel Cells (Auto) Urine Crystals (Auto) Urine Bacteria (Auto) RPR Titer Nonreactive 12/11/18 16:37 WBC RBC Hgb Hct MCV MCH MCHC RDW Plt Count MPV Sodium Potassium Chloride Carbon Dioxide Anion Gap BUN Creatinine Est GFR (CKD-EPI)AfAm Est GFR (CKD-EPI)NonAf Random Glucose Calcium Total Bilirubin AST ALT Alkaline Phosphatase Total Protein Albumin Urine Color Yellow Urine Appearance Turbid Urine pH 5.5 Ur Specific [place] 1.037 H Urine Protein Negative Urine Glucose (UA) Negative Urine Ketones Negative Urine Blood Negative Urine Nitrite Negative Urine Bilirubin Negative Urine Urobilinogen 1.0 Ur Leukocyte Esterase Trace Urine WBC (Auto) 7 Urine RBC (Auto) 3 Urine Casts (Auto) 35 U Epithel Cells (Auto) 6.9 Urine Crystals (Auto) Amorphous urates Urine Bacteria (Auto) 18.5 RPR Titer LABS NOTED. - Treatment Hospital Course: Detox Protocol Followed, Detoxed Safely, Responded well, Discharged Condition Good, Rehab Referral Accepted Patient has Accepted a Rehab Referral to: [facility] ([facility], [place]). - Medication Discharge Medications: Ambulatory Orders Risperidone [Risperdal -] 2 mg PO BID 12/11/18 - Diagnosis (1) Alcohol dependence with uncomplicated withdrawal Status: Acute (2) Dehydration Status: Acute (3) Heroin abuse Status: Acute (4) Weight loss Status: Acute (5) Weight loss Status: Acute (6) Cannabis dependence Status: Chronic (7) Cocaine dependence Status: Chronic Qualifiers: Substance use status: uncomplicated Qualified Code(s): F14.20 - Cocaine dependence, uncomplicated (8) Nicotine dependence Status: Chronic Qualifiers: Nicotine product type: cigarettes Substance use status: uncomplicated Qualified Code(s): F17.210 - Nicotine dependence, cigarettes, uncomplicated (9) Schizophrenia Status: Chronic Qualifiers: Schizophrenia type: unspecified Qualified Code(s): F20.9 - Schizophrenia, unspecified (10) Non-compliance Status: Chronic (11) Substance induced mood disorder Status: Suspected - AMA Did Patient Leave Against Medical Advice: No
== END 2018-12-15 07:00 | disposition home or self-care (01) | DRG 774 ==
LOC: YASAS 09:00 → Y3N 11:24
PROVIDERS: ADMIT Surgery; ATTEND Surgery
PROC: HZ2ZZZZ Detoxification Services for Substance Abuse Treatment (ICD-10-PCS; principal; 2018-12-11)
DX: F10.230 Alcohol dependence with withdrawal, uncomplicated (principal); F10.20 Alcohol dependence, uncomplicated; F14.20 Cocaine dependence, uncomplicated; F12.20 Cannabis dependence, uncomplicated; F17.210 Nicotine dependence, cigarettes, uncomplicated; F19.24 Other psychoactive substance dependence with psychoactive substance-induced mood disorder; F20.9 Schizophrenia, unspecified; I10 Essential (primary) hypertension; E86.0 Dehydration; R63.4 Abnormal weight loss; Z68.25 Body mass index [BMI] 25.0-25.9, adult; Z91.19 Patient's noncompliance with other medical treatment and regimen
CPT/HCPCS: 36415; 80053; 81003; 85027; 86593; J0735; J2794

== ENCOUNTER 2019-05-12 13:33 | Inpatient (IN) | payer OTHER ==
[2019-05-12 15:18] VITALS: BMI 25.3
--- NOTE | 2019-05-12 18:01 | HP ---
CIWA Score Nausea/Vomitin Muscle Tremors: 3 Anxiety: 3 Agitation: 3 Paroxysmal Sweats: 1-Minimal Palms Moist Orientation: 0-Oriented Tacttile Disturbances: 1-Very Mild Itch/Numbness Auditory Disturbances: 0-None Visual Disturbances: 0-None Headache: 2-Mild CIWA-Ar Total Score: 15 - Admission Criteria OASAS Guidelines: Admission for Medically Managed Detox: Requires at least one of the followin. CIWA greater than 12 2. Seizures within the past 24 hours 3. Delirium tremens within the past 24 hours 4. Hallucinations within the past 24 hours 5. Acute intervention needed for co occurring medical disorder 6. Acute intervention needed for co occurring psychiatric disorder 7. Severe withdrawal that cannot be handled at a lower level of care (continued vomiting, continued diarrhea, abnormal vital signs) requiring intravenous medication and/or fluids 8. Admitting History and Physical - Smoking History Smoking history: Current every day smoker Have you smoked in the past 12 months: Yes - Alcohol/Substance Use Hx Alcohol Use: Yes Admission ROS S - HPI Chief Complaint: i need help to stop drinking alcohol,cocaine,marijuna,heroin abused Allergies/Adverse Reactions: Allergies Allergy/AdvReac Type Severity Reaction Status Date / Time No Known Allergies Allergy Verified 05/12/19 15:13 History of Present Illness: this 53 years old male with alcohol,cocaine,marijuana,heroin abused,seeking detox, last detox 12/11/18 to 12/15/18 denied seizure denied syncope history of schizophrenia,ptsd nicotine dependence longest sobriety 4 years plan for rehab Exam Limitations: No Limitations - Ebola screening Have you traveled outside of the country in the last 21 days: No (N) Have you had contact with anyone from an Ebola affected area: No Do you have a fever: No - Review of Systems Constitutional: Loss of Appetite, Malaise, Night Sweats, Weakness, Unintentional Wgt. Loss EENT: reports: Nose Congestion Respiratory: reports: No Symptoms reported Cardiac: reports: No Symptoms Reported GI: reports: Nausea, Poor Fluid Intake, Indigestion : reports: No Symptoms Reported Musculoskeletal: reports: Back Pain, Muscle Pain Integumentary: reports: Bruising Neuro: reports: Headache, Tremors Endocrine: reports: No Symptoms Reported Hematology: reports: No Symptoms Reported Psychiatric: reports: No Sypmtoms Reported, Judgement Intact, Mood/Affect Appropiate, Orientated x3 Other Systems: Reviewed and Negative Patient History - Patient Medical History Hx Anemia: No Hx Asthma: No Hx Chronic Obstructive Pulmonary Disease (COPD): No Hx Cancer: No Hx Cardiac Disorders: No Hx Congestive Heart Failure: No Hx Hypertension: Yes (no med) Hx Hypercholesterolemia: No Hx Pacemaker: No HX Cerebrovascular Accident: No Hx Seizures: No Hx Dementia: No Hx Diabetes: No Hx Gastrointestinal Disorders: No Hx Liver Disease: No Hx Genitourinary Disorders: No Hx Sexually Transmitted Disorders: No Hx Renal Disease (ESRD): No Hx Thyroid Disease: No Hx Human Immunodeficiency Virus (HIV): No (last 11/19 negative) Hx Hepatitis C: No Hx Depression: No Hx Suicide Attempt: No Hx Bipolar Disorder: Yes Hx Schizophrenia: Yes Other Medical History: no suicidal,no homicidal - Patient Surgical History Past Surgical History: No Hx Neurologic Surgery: No Hx Cataract Extraction: No Hx Cardiac Surgery: No Hx Lung Surgery: No Hx Breast Surgery: No Hx Breast Biopsy: No Hx Abdominal Surgery: No Hx Appendectomy: No Hx Cholecystectomy: No Hx Genitourinary Surgery: No Hx Section: No Hx Orthopedic Surgery: No Anesthesia Reaction: No - PPD History Date: 11/13/18 Results: cxr11/15/18 neg PPD to be Administered?: No - Smoking Cessation Smoking history: Current every day smoker Have you smoked in the past 12 months: Yes Aproximately how many cigarettes per day: 10 Hx Chewing Tobacco Use: No Initiated information on smoking cessation: Yes 'Breaking Loose' booklet given: 05/12/19 - Substances abused Heroin Substance route: Inhalation Frequency: Daily Amount used: 2 bags Age of first use: 21 Date of last use: 05/10/19 Crack Substance route: Smoking Frequency: Daily Amount used: $200 Age of first use: 21 Date of last use: 11/10/18 Alcohol Substance route: Oral Frequency: Daily Amount used: 1 pint of Vodka Age of first use: 13 Date of last use: 05/11/19 Marijuana/Hashish Substance route: Smoking Frequency: Daily Amount used: 40$ Age of first use: 13 Date of last use: 11/11/18 Cocaine Substance route: Inhalation Frequency: Daily Amount used: 1/2-1 gram Age of first use: 16 Date of last use: 05/12/19 Admission Physical Exam BHS - Vital Signs Vital Signs: Vital Signs - 24 hr 05/12/19 15:15 Temperature 98.4 F Pulse Rate 68 Respiratory 16 Rate Blood Pressure 174/90 H - Physical General Appearance: Yes: Moderate Distress, Tremorous, Irritable, Sweating, Anxious HEENTM: Yes: Normal ENT Inspection, Pharynx Normal Respiratory: Yes: Lungs Clear, Normal Breath Sounds, No Respiratory Distress Neck: Yes: Within Normal Limits, Supple, Trachea in good position Breast: Yes: Within Normal Limits Cardiology: Yes: Within Normal Limits, Regular Rate, S1, S2 Abdominal: Yes: Within Normal Limits, Normal Bowel Sounds, Non Tender, Soft Genitourinary: Yes: Within Normal Limits Back: Yes: Muscle Spasm Musculoskeletal: Yes: Back pain, Muscle Pain Extremities: Yes: Tremors Integumentary: Yes: Within Normal Limits, Dry Lymphatic: Yes: Within Normal Limits - Diagnostic (1) Alcohol dependence with uncomplicated withdrawal Current Visit: No Status: Acute (2) Dehydration Current Visit: No Status: Acute (3) Heroin abuse Current Visit: No Status: Acute (4) Hypertension Current Visit: No Status: Acute (5) Weight loss Current Visit: No Status: Acute (6) Nicotine dependence Current Visit: No Status: Chronic Qualifiers: Nicotine product type: cigarettes Substance use status: uncomplicated Qualified Code(s): F17.210 - Nicotine dependence, cigarettes, uncomplicated (7) Schizophrenia Current Visit: No Status: Chronic Qualifiers: Schizophrenia type: unspecified Qualified Code(s): F20.9 - Schizophrenia, unspecified Cleared for Admission [facility] - Detox or Rehab [facility] Level of Care: Medically Managed (patient is aware isael urine for opiate negative,he will not get methadone) Detox Regimen/Protocol: Librium Breathalyzer - Breathalyzer Breathalyzer: 0 Urine Drug Screen - Test Device Lot number: [id number] Expiration date: 12/31/20 - Control Is test valid?: Yes - Results Drug screen NEGATIVE: No Urine drug screen results: THC-Marijuana, ZION-Cocaine Inpatient Rehab Admission - Rehab Decision to Admit Inpatient rehab admission?: No
[2019-05-12] MEDS ORDERED: MAGNESIUM CITRATE 300 ML BOTTLE PO PRN (18:23)
[2019-05-12] MEDS ORDERED: MAG HYDROX/AL HYDROX/SIMETH 30 ML UNIT-DOSE CUP PO PRN (18:23)
[2019-05-12] MEDS ORDERED: IBUPROFEN 400 MG TABLET (FP) PO PRN (18:23)
[2019-05-12] MEDS ORDERED: MENTHOL/PHENOL 1 EACH UD MM PRN (18:23)
[2019-05-12] MEDS ORDERED: BISMUTH SUBSALICYLATE 524 MG/30 ML UD PO PRN (18:23)
[2019-05-12] MEDS ORDERED: ACETAMINOPHEN 325 MG TABLET (FP) PO PRN ×2 (18:23)
[2019-05-12] MEDS ORDERED: MAGNESIUM HYDROX 2400MG/30ML ORAL SUSPENSION 30 ML CUP PO PRN (18:23)
[2019-05-12] MEDS ORDERED: chlordiazePOXIDE HCL 25 MG CAPSULE PO PRN (18:23)
[2019-05-12] MEDS ORDERED: hydrOXYzine PAMOATE 25 MG CAPSULE (FP) PO PRN (18:23)
[2019-05-12] MEDS: chlordiazePOXIDE HCL 25 MG CAPSULE PO SCH ×2 (19:28→22:51)
[2019-05-12] MEDS: METHOCARBAMOL 500 MG TABLET PO PRN (19:28)
[2019-05-12] MEDS: THIAMINE HCL 100 MG TABLET (FP) PO SCH (22:51)
[2019-05-12] MEDS: MELATONIN 5 MG TABLETS PO PRN (22:52)
[2019-05-13 10:24] LABS: HEMATOCRIT 35.5 % (35.4-49); HEMOGLOBIN 11.4 GM/dL (11.7-16.9); MCH 27.4 pg (25.7-33.7); MCHC 32.2 g/dl (32.0-35.9); MEAN CELL VOLUME 85.1 fl (80-96); MEAN PLT VOLUME 11.1 fl (7.5-11.1); PLATELET COUNT 184 K/MM3 (134-434); RBC 4.18 M/mm3 (4.00-5.60); RDW 13.9 % (11.9-15.9); WHITE BLOOD COUNT 4.1 K/mm3 (4.0-10.0)
[2019-05-13 10:35] LABS: ALBUMIN 3.1 g/dl (3.4-5.0); BILIRUBIN,TOTAL 0.6 mg/dL (0.2-1); BLOOD UREA NITROGEN 13.6 mg/dL (7-18); CALCIUM 8.8 mg/dL (8.5-10.1); CREATININE 0.9 mg/dL (0.55-1.3); POTASSIUM 4.2 mmol/L (3.5-5.1)
[2019-05-13] MEDS: PRENATAL VITAMINS W/ FOLIC ACID TABLET (FP) PO SCH (11:13)
[2019-05-13] MEDS: chlordiazePOXIDE HCL 25 MG CAPSULE PO SCH ×4 (11:13→22:58)
[2019-05-13] MEDS: METHOCARBAMOL 500 MG TABLET PO PRN (11:15)
--- NOTE | 2019-05-13 17:49 | PN ---
S CIWA - CIWA Score Nausea/Vomitin-Mild Nausea/No Vomiting Muscle Tremors: 4-Moderate,w/Arms Extend Anxiety: 3 Agitation: 3 Paroxysmal Sweats: 3 Orientation: 0-Oriented Tacttile Disturbances: 0-None Auditory Disturbances: 0-None Visual Disturbances: 0-None Headache: 0-None Present CIWA-Ar Total Score: 14 BHS Progress Note (SOAP) Subjective: Interrupted sleep Objective: 05/13/19 17:48 Last Vital Signs Temp Pulse Resp BP Pulse Ox 98.8 F 63 17 163/102 H 05/13/19 14:25 05/13/19 14:25 05/13/19 14:25 05/13/19 14:25 Elevated b/p: has htn, on medication Laboratory Tests 05/13/19 05/13/19 05/13/19 07:40 07:40 07:50 WBC 4.1 RBC 4.18 Hgb 11.4 L Hct 35.5 MCV 85.1 MCH 27.4 MCHC 32.2 RDW 13.9 Plt Count 184 D MPV 11.1 Sodium 141 Potassium 4.2 Chloride 109 H Carbon Dioxide 29 Anion Gap 3 L BUN 13.6 Creatinine 0.9 Est GFR (CKD-EPI)AfAm 113.41 Est GFR (CKD-EPI)NonAf 97.85 Random Glucose 94 Calcium 8.8 Total Bilirubin 0.6 AST 15 ALT 17 Alkaline Phosphatase 46 Total Protein 6.0 L Albumin 3.1 L RPR Titer Nonreactive Labs reviewed Assessment: 05/13/19 17:52 Withdrawal sxs HTN noted, uncontrolled (patient has htn but not on medication) Plan: Continue detox Encouraged PO water intake HTN: start norvasc 10 mg PO daily, first dose now, monitor b/p
[2019-05-13] MEDS ORDERED: amLODIPine BESYLATE 10 MG TABLET (FP) PO ONE (17:50)
[2019-05-13] MEDS: THIAMINE HCL 100 MG TABLET (FP) PO SCH (22:58)
[2019-05-14] MEDS: chlordiazePOXIDE HCL 25 MG CAPSULE PO SCH ×4 (07:02→22:35)
[2019-05-14] MEDS: METHOCARBAMOL 500 MG TABLET PO PRN ×2 (11:09→17:33)
[2019-05-14] MEDS: amLODIPine BESYLATE 10 MG TABLET (FP) PO SCH (11:10)
[2019-05-14] MEDS: PRENATAL VITAMINS W/ FOLIC ACID TABLET (FP) PO SCH (11:11)
--- NOTE | 2019-05-14 11:53 | CONSULT ---
[facility] Psychiatric Consult - Data Date of interview: 05/14/19 Admission source: Self-referred Identifying data: Mr Victoria is a 53 years old Black male, father of 6 children, unemployed, homeless seeking detox treatment for alcohol, opioid, cocaine and cannabis Substance Abuse History: Reports history of alcohol, heroin, cocaine and marijuana use. Refr to addivtion counselor's summary for further information Medical History: Sinificant for hypertension. Smokes 10 cigarettes daily Psychiatric History: Patient reveals a past history of a psychiatric hospitalization at [facility]. He endorses the diagnoses of " Bipolar Disorder with Schizophrenia and PTSD ". Mr Victoria denies going to a psychiatrist in the community for OPD care. Patient was discharged (AMA) from [facility] in November 2018 on a regimen of risperidone 2 mg po bid. Non-adherence to medications is reported by the patient. Denies history of suicide attempts. Physical/Sexual Abuse/Trauma History: History prior arrests and incarceration. Served 15 years in [facility]
--- NOTE | 2019-05-14 13:45 | PN ---
S CIWA - CIWA Score Nausea/Vomitin-No Nausea/No Vomiting Muscle Tremors: 3 Anxiety: 3 Agitation: 3 Paroxysmal Sweats: 3 Orientation: 0-Oriented Tacttile Disturbances: 0-None Auditory Disturbances: 0-None Visual Disturbances: 0-None Headache: 0-None Present CIWA-Ar Total Score: 12 S Progress Note (SOAP) Subjective: sweats shakes chills low back pain i need my psych meds Objective: 05/14/19 13:45 Vital Signs Temperature 98.2 F 05/14/19 09:56 Pulse Rate 67 05/14/19 09:56 Respiratory Rate 18 05/14/19 09:56 Blood Pressure 143/93 05/14/19 09:56 O2 Sat by Pulse Oximetry (%) Laboratory Tests 05/13/19 05/13/19 05/13/19 07:40 07:40 07:50 WBC 4.1 RBC 4.18 Hgb 11.4 L Hct 35.5 MCV 85.1 MCH 27.4 MCHC 32.2 RDW 13.9 Plt Count 184 D MPV 11.1 Sodium 141 Potassium 4.2 Chloride 109 H Carbon Dioxide 29 Anion Gap 3 L BUN 13.6 Creatinine 0.9 Est GFR (CKD-EPI)AfAm 113.41 Est GFR (CKD-EPI)NonAf 97.85 Random Glucose 94 Calcium 8.8 Total Bilirubin 0.6 AST 15 ALT 17 Alkaline Phosphatase 46 Total Protein 6.0 L Albumin 3.1 L RPR Titer Nonreactive labs noted aaox3 ambulating no acute distress Assessment: 05/14/19 13:45 withdrawal sx Plan: continue detox psych ordered
--- NOTE | 2019-05-14 14:25 | CONSULT ---
[facility] Psychiatric Consult - Data Date of interview: 05/14/19 Psychiatric History: Patient was approached twice at bedside. He told underwriter mortgage loan:" I cannot talk right now, my back is hurting". Please reconsult when patient is able to be interviewed
[2019-05-14] MEDS: THIAMINE HCL 100 MG TABLET (FP) PO SCH (22:34)
[2019-05-14] MEDS: MELATONIN 5 MG TABLETS PO PRN (22:35)
[2019-05-15] MEDS ORDERED: chlordiazePOXIDE HCL 10 MG CAPSULE PO PRN
[2019-05-15] MEDS: chlordiazePOXIDE HCL 10 MG CAPSULE PO SCH ×2 (06:41→10:55)
[2019-05-15 09:50] VITALS: BP 152/86; PULSE 68; TEMP 98.2
[2019-05-15] MEDS: PRENATAL VITAMINS W/ FOLIC ACID TABLET (FP) PO SCH (10:55)
[2019-05-15] MEDS: amLODIPine BESYLATE 10 MG TABLET (FP) PO SCH (10:55)
--- NOTE | 2019-05-15 12:05 | PN ---
S Progress Note Note: pt is refusing to take librium for detox. Pt was approached by the disciplinary team and encouraged pt the purpose of detox. D/T his refusal, pt was told he will be discharged and referral provided. Pt did not hesitate and was escorted off the unit.
--- NOTE | 2019-05-15 14:43 | DS ---
[facility] Detox Discharge Summary Admission Date: 05/12/19 Discharge Date: 05/15/19 - History Present History: Alcohol Dependence - Physical Exam Results Vital Signs: Vital Signs Temperature 98.2 F 05/15/19 09:49 Pulse Rate 68 05/15/19 09:49 Respiratory Rate 18 05/15/19 09:49 Blood Pressure 152/86 05/15/19 09:49 O2 Sat by Pulse Oximetry (%) - Treatment Hospital Course: Rehab Referral Accepted - Medication Discharge Medications: Ambulatory Orders Risperidone [Risperdal -] 2 mg PO BID 12/11/18 - Diagnosis (1) Alcohol dependence with uncomplicated withdrawal Status: Chronic (2) Hypertension Status: Chronic Qualifiers: Hypertension type: essential hypertension Qualified Code(s): I10 - Essential (primary) hypertension (3) Cannabis dependence Status: Chronic (4) Cocaine dependence Status: Chronic Qualifiers: Substance use status: uncomplicated Qualified Code(s): F14.20 - Cocaine dependence, uncomplicated (5) Nicotine dependence Status: Chronic Qualifiers: Nicotine product type: cigarettes Substance use status: uncomplicated Qualified Code(s): F17.210 - Nicotine dependence, cigarettes, uncomplicated (6) Schizophrenia Status: Chronic Qualifiers: Schizophrenia type: unspecified Qualified Code(s): F20.9 - Schizophrenia, unspecified (7) Substance induced mood disorder Status: Suspected - AMA Did Patient Leave Against Medical Advice: No
[2019-05-16] MEDS ORDERED: chlordiazePOXIDE HCL 10 MG CAPSULE PO SCH (05:00)
[2019-05-17] MEDS ORDERED: chlordiazePOXIDE HCL 10 MG CAPSULE PO ONE (05:00)
== END 2019-05-15 11:54 | disposition home or self-care (01) | DRG 774 ==
LOC: YASAS 13:33 → Y6N 18:34
PROVIDERS: ADMIT Allergy & Immunology; ATTEND Allergy & Immunology
PROC: HZ2ZZZZ Detoxification Services for Substance Abuse Treatment (ICD-10-PCS; principal; 2019-05-12)
DX: F10.230 Alcohol dependence with withdrawal, uncomplicated (principal); F14.20 Cocaine dependence, uncomplicated; F12.20 Cannabis dependence, uncomplicated; F17.210 Nicotine dependence, cigarettes, uncomplicated; F19.24 Other psychoactive substance dependence with psychoactive substance-induced mood disorder; F20.9 Schizophrenia, unspecified; F31.9 Bipolar disorder, unspecified; I10 Essential (primary) hypertension; E86.0 Dehydration; R63.4 Abnormal weight loss; Z68.25 Body mass index [BMI] 25.0-25.9, adult
CPT/HCPCS: 36415; 80053; 85027; 86593

== ENCOUNTER 2019-05-27 08:25 | Inpatient (IN) | payer OTHER ==
[2019-05-27 08:56] VITALS: BMI 25.0
--- NOTE | 2019-05-27 09:42 | HP ---
CIWA Score Nausea/Vomitin-Mild Nausea/No Vomiting Muscle Tremors: 2 Anxiety: 3 Agitation: 3 Paroxysmal Sweats: No Perspiration Orientation: 0-Oriented Tacttile Disturbances: 1-Very Mild Itch/Numbness Auditory Disturbances: 0-None Visual Disturbances: 1-Very Mild Sensitivity Headache: 2-Mild CIWA-Ar Total Score: 13 - Admission Criteria OASAS Guidelines: Admission for Medically Managed Detox: Requires at least one of the followin. CIWA greater than 12 2. Seizures within the past 24 hours 3. Delirium tremens within the past 24 hours 4. Hallucinations within the past 24 hours 5. Acute intervention needed for co occurring medical disorder 6. Acute intervention needed for co occurring psychiatric disorder 7. Severe withdrawal that cannot be handled at a lower level of care (continued vomiting, continued diarrhea, abnormal vital signs) requiring intravenous medication and/or fluids 8. Admitting History and Physical - Admission Chief Complaint: i need help to sto drinking alcohol,cocaine and marijuana History Source: Patient Limitations to Obtaining History: No Limitations - Past Medical History Cardiovascular: Yes: HTN Psych: Yes: Schizophrenia Musculoskeletal: Yes: Chronic low back pain - Smoking History Smoking history: Current every day smoker Have you smoked in the past 12 months: Yes Aproximately how many cigarettes per day: 10 - Alcohol/Substance Use Hx Alcohol Use: Yes History of Substance Use: reports: Cocaine, Marijuana - Social History Usual Living Arrangement: Yes: Other (homeless) Occupation: unemployed History of Recent Travel: No Other Social History: unemployed,homeless,smoke 1/2 pack/day Admission ROS BHS - HPI Chief Complaint: i need help to stop drinking alcohol,cocaine and marijuana Allergies/Adverse Reactions: Allergies Allergy/AdvReac Type Severity Reaction Status Date / Time No Known Allergies Allergy Verified 05/27/19 08:51 History of Present Illness: this 53 years old male with alcohol,cocaine,marijuana dependence,seeking detox, withdrawal symptom, last admission in detox [facility] 05/12/19 to 05/15/19 but has to leave with non compliance weight loss chronic low back pain hypertension no seizure no syncope multiple admissions in the past schizophrenia nicotine dependence 1/2 pack /day longest period of sobriety non compliance issues Exam Limitations: No Limitations - Ebola screening Have you traveled outside of the country in the last 21 days: No (N) Have you had contact with anyone from an Ebola affected area: No Do you have a fever: No - Review of Systems Constitutional: Loss of Appetite, Malaise, Night Sweats, Changes in sleep EENT: reports: Nose Congestion Respiratory: reports: No Symptoms reported Cardiac: reports: No Symptoms Reported GI: reports: Nausea, Poor Appetite, Abdominal cramping : reports: No Symptoms Reported Musculoskeletal: reports: Back Pain, Muscle Pain Integumentary: reports: Dryness Neuro: reports: Headache, Tremors Endocrine: reports: No Symptoms Reported Hematology: reports: No Symptoms Reported Psychiatric: reports: No Sypmtoms Reported, Judgement Intact, Mood/Affect Appropiate, Orientated x3 (schizophrenia) Other Systems: Reviewed and Negative Patient History - Patient Medical History Hx Anemia: No Hx Asthma: No Hx Chronic Obstructive Pulmonary Disease (COPD): No Hx Cancer: No Hx Cardiac Disorders: No Hx Congestive Heart Failure: No Hx Hypertension: Yes (no med,non compliance) Hx Hypercholesterolemia: No Hx Pacemaker: No HX Cerebrovascular Accident: No Hx Seizures: No Hx Dementia: No Hx Diabetes: No Hx Gastrointestinal Disorders: No Hx Liver Disease: No Hx Genitourinary Disorders: No Hx Sexually Transmitted Disorders: No Hx Renal Disease (ESRD): No Hx Thyroid Disease: No Hx Human Immunodeficiency Virus (HIV): No (last 11/19 negative) Hx Hepatitis C: No Hx Depression: No Hx Suicide Attempt: No Hx Bipolar Disorder: Yes Hx Schizophrenia: Yes (non compliance) Other Medical History: no suicidal,no homicidal - Patient Surgical History Past Surgical History: No Hx Neurologic Surgery: No Hx Cataract Extraction: No Hx Cardiac Surgery: No Hx Lung Surgery: No Hx Breast Surgery: No Hx Breast Biopsy: No Hx Abdominal Surgery: No Hx Appendectomy: No Hx Cholecystectomy: No Hx Genitourinary Surgery: No Hx Section: No Hx Orthopedic Surgery: No Anesthesia Reaction: No - PPD History Documented Results: Positive w/proof Date: 11/13/18 Results: cxr11/15/18 neg PPD to be Administered?: No - Smoking Cessation Smoking history: Current every day smoker Have you smoked in the past 12 months: Yes Aproximately how many cigarettes per day: 10 Cigars Per Day: 10 Hx Chewing Tobacco Use: No Initiated information on smoking cessation: Yes 'Breaking Loose' booklet given: 05/27/19 - Substance & Tx. History Hx Alcohol Use: Yes Hx Substance Use: Yes Substance Use Type: Alcohol, Cocaine, Marijuana Hx Substance Use Treatment: Yes ([facility] 05/12/19 to 05/15/19) - Substances abused Heroin Substance route: Inhalation Frequency: Daily Amount used: 2 bags Age of first use: 21 Date of last use: 05/10/19 Crack Substance route: Smoking Frequency: Daily Amount used: $200 Age of first use: 21 Date of last use: 11/10/18 Alcohol Substance route: Oral Frequency: Daily Amount used: 1 pint of Vodka Age of first use: 13 Date of last use: 05/26/19 Marijuana/Hashish Substance route: Smoking Frequency: Daily Amount used: 40$ Age of first use: 13 Date of last use: 11/17/18 Cocaine Substance route: Inhalation Frequency: Daily Amount used: 1/2-1 gram Age of first use: 16 Date of last use: 05/27/19 Admission Physical Exam S - Vital Signs Vital Signs: Vital Signs - 24 hr 05/27/19 08:51 Temperature 97.5 F L Pulse Rate 52 L Respiratory 20 Rate Blood Pressure 203/99 H - Physical General Appearance: Yes: Moderate Distress, Tremorous, Irritable, Sweating, Anxious HEENTM: Yes: Normal ENT Inspection, RAJAN, Pharynx Normal Respiratory: Yes: Within Normal Limits, Lungs Clear, Normal Breath Sounds Neck: Yes: Within Normal Limits, Supple, Trachea in good position Breast: Yes: Within Normal Limits Cardiology: Yes: Within Normal Limits, Regular Rhythm, Regular Rate, S1, S2 Abdominal: Yes: Within Normal Limits, Normal Bowel Sounds, Non Tender, Flat, Soft Back: Yes: Muscle Spasm Musculoskeletal: Yes: Back pain, Muscle Pain Extremities: Yes: Tremors Integumentary: Yes: Dry Lymphatic: Yes: Within Normal Limits - Diagnostic (1) Alcohol dependence with uncomplicated withdrawal Current Visit: No Status: Chronic (2) Cannabis dependence Current Visit: No Status: Chronic (3) Cocaine dependence Current Visit: No Status: Chronic Qualifiers: Substance use status: uncomplicated Qualified Code(s): F14.20 - Cocaine dependence, uncomplicated (4) Hypertension Current Visit: No Status: Chronic Qualifiers: Hypertension type: essential hypertension Qualified Code(s): I10 - Essential (primary) hypertension (5) Nicotine dependence Current Visit: No Status: Chronic Qualifiers: Nicotine product type: cigarettes Substance use status: uncomplicated Qualified Code(s): F17.210 - Nicotine dependence, cigarettes, uncomplicated (6) Schizophrenia Current Visit: No Status: Chronic Qualifiers: Schizophrenia type: unspecified Qualified Code(s): F20.9 - Schizophrenia, unspecified (7) Low back pain Current Visit: Yes Status: Acute (8) Weight loss Current Visit: Yes Status: Acute Cleared for Admission S - Detox or Rehab [facility] Level of Care: Medically Managed Detox Regimen/Protocol: Valium Breathalyzer - Breathalyzer Breathalyzer: 0 Urine Drug Screen - Test Device Lot number: [id number] Expiration date: 01/31/21 - Control Is test valid?: Yes - Results Drug screen NEGATIVE: No Urine drug screen results: THC-Marijuana, ZION-Cocaine, BZO-Benzodiazepines Inpatient Rehab Admission - Rehab Decision to Admit Inpatient rehab admission?: No
[2019-05-27] MEDS ORDERED: MAG HYDROX/AL HYDROX/SIMETH 30 ML UNIT-DOSE CUP PO PRN (09:55)
[2019-05-27] MEDS ORDERED: diazePAM 5 MG TABLET PO PRN (09:55)
[2019-05-27] MEDS ORDERED: MENTHOL/PHENOL 1 EACH UD MM PRN (09:55)
[2019-05-27] MEDS ORDERED: MAGNESIUM HYDROX 2400MG/30ML ORAL SUSPENSION 30 ML CUP PO PRN (09:55)
[2019-05-27] MEDS ORDERED: ACETAMINOPHEN 325 MG TABLET (FP) PO PRN ×2 (09:55)
[2019-05-27] MEDS ORDERED: NICOTINE POLACRILEX 2 MG GUM BUC PRN (09:55)
[2019-05-27] MEDS ORDERED: BISMUTH SUBSALICYLATE 524 MG/30 ML UD PO PRN (09:55)
[2019-05-27] MEDS ORDERED: MAGNESIUM CITRATE 300 ML BOTTLE PO PRN (09:55)
[2019-05-27] MEDS ORDERED: hydrOXYzine PAMOATE 25 MG CAPSULE (FP) PO PRN (09:55)
[2019-05-27] MEDS ORDERED: cloNIDine HCL 0.1 MG TABLET PO ONE (10:00)
[2019-05-27] MEDS: NICOTINE 21 MG/24 HOURS TOPICAL PATCH TD SCH (10:49)
[2019-05-27] MEDS: PRENATAL VITAMINS W/ FOLIC ACID TABLET (FP) PO SCH (11:20)
[2019-05-27] MEDS: HYDROCHLOROTHIAZIDE 25 MG TABLET (FP) PO SCH (11:20)
[2019-05-27] MEDS: METHOCARBAMOL 500 MG TABLET PO PRN (11:21)
[2019-05-27] MEDS: IBUPROFEN 400 MG TABLET (FP) PO PRN (11:22)
[2019-05-27] MEDS: amLODIPine BESYLATE 5 MG TABLET (FP) PO SCH (11:22)
[2019-05-27] MEDS: diazePAM 5 MG TABLET PO SCH ×2 (16:03→21:22)
[2019-05-27] MEDS: THIAMINE HCL 100 MG TABLET (FP) PO SCH (21:22)
[2019-05-27] MEDS: MELATONIN 5 MG TABLETS PO PRN (21:22)
[2019-05-28] MEDS: diazePAM 5 MG TABLET PO SCH ×3 (05:18→22:09)
[2019-05-28] MEDS: IBUPROFEN 400 MG TABLET (FP) PO PRN (05:19)
[2019-05-28 09:47] LABS: HEMATOCRIT 35.3 % (35.4-49); HEMOGLOBIN 11.3 GM/dL (11.7-16.9); MCH 27.1 pg (25.7-33.7); MEAN CELL VOLUME 84.7 fl (80-96); MEAN PLT VOLUME 11.6 fl (7.5-11.1); PLATELET COUNT 163 K/MM3 (134-434); RBC 4.17 M/mm3 (4.00-5.60); RDW 13.6 % (11.9-15.9); WHITE BLOOD COUNT 4.6 K/mm3 (4.0-10.0)
[2019-05-28 10:02] LABS: BILIRUBIN,TOTAL 0.3 mg/dL (0.2-1); BLOOD UREA NITROGEN 11.9 mg/dL (7-18); CALCIUM 8.9 mg/dL (8.5-10.1); POTASSIUM 4.3 mmol/L (3.5-5.1)
[2019-05-28] MEDS: amLODIPine BESYLATE 5 MG TABLET (FP) PO SCH (10:22)
[2019-05-28] MEDS: NICOTINE 21 MG/24 HOURS TOPICAL PATCH TD SCH (10:22)
[2019-05-28] MEDS: PRENATAL VITAMINS W/ FOLIC ACID TABLET (FP) PO SCH (10:22)
--- NOTE | 2019-05-28 10:22 | PN ---
S CIWA - CIWA Score Nausea/Vomitin-Mild Nausea/No Vomiting Muscle Tremors: 3 Anxiety: 4-Mod. Anxious/Guarded Agitation: 1-Slight > Activity Paroxysmal Sweats: 2 Orientation: 0-Oriented Tacttile Disturbances: 0-None Auditory Disturbances: 0-None Visual Disturbances: 0-None Headache: 1-Very Mild CIWA-Ar Total Score: 12 S Progress Note (SOAP) Subjective: 53 years old male admitted on 05/27/19 for alcohol withdrawal sx management treated with valium detox regimen resting on bed feeling tired limited conversation with staff Objective: 05/28/19 10:21 Vital Signs Temperature 98.1 F 05/28/19 09:16 Pulse Rate 53 L 05/28/19 09:16 Respiratory Rate 19 05/28/19 09:16 Blood Pressure 144/83 05/28/19 09:16 O2 Sat by Pulse Oximetry (%) Laboratory Last Values WBC 4.6 K/mm3 (4.0-10.0) 05/28/19 08:00 RBC 4.17 M/mm3 (4.00-5.60) 05/28/19 08:00 Hgb 11.3 GM/dL (11.7-16.9) L 05/28/19 08:00 Hct 35.3 % (35.4-49) L 05/28/19 08:00 MCV 84.7 fl (80-96) 05/28/19 08:00 MCH 27.1 pg (25.7-33.7) 05/28/19 08:00 MCHC 32.0 g/dl (32.0-35.9) 05/28/19 08:00 RDW 13.6 % (11.9-15.9) 05/28/19 08:00 Plt Count 163 K/MM3 (134-434) 05/28/19 08:00 MPV 11.6 fl (7.5-11.1) H 05/28/19 08:00 Sodium 138 mmol/L (136-145) 05/28/19 08:00 Potassium 4.3 mmol/L (3.5-5.1) 05/28/19 08:00 Chloride 105 mmol/L (98-107) 05/28/19 08:00 Carbon Dioxide 30 mmol/L (21-32) 05/28/19 08:00 Anion Gap 3 MMOL/L (8-16) L 05/28/19 08:00 BUN 11.9 mg/dL (7-18) 05/28/19 08:00 Creatinine 1.0 mg/dL (0.55-1.3) 05/28/19 08:00 Est GFR (CKD-EPI)AfAm 99.85 05/28/19 08:00 Est GFR (CKD-EPI)NonAf 86.15 05/28/19 08:00 Random Glucose 89 mg/dL (74-106) 05/28/19 08:00 Calcium 8.9 mg/dL (8.5-10.1) 05/28/19 08:00 Total Bilirubin 0.3 mg/dL (0.2-1) 05/28/19 08:00 AST 13 U/L (15-37) L 05/28/19 08:00 ALT 20 U/L (13-61) 05/28/19 08:00 Alkaline Phosphatase 58 U/L (45-117) 05/28/19 08:00 Total Protein 6.0 g/dl (6.4-8.2) L 05/28/19 08:00 Albumin 3.0 g/dl (3.4-5.0) L 05/28/19 08:00 lab noted Assessment: 05/28/19 10:21 alcohol withdrawal sx Plan: continue valium detox regimen
[2019-05-28] MEDS: HYDROCHLOROTHIAZIDE 25 MG TABLET (FP) PO SCH (10:47)
--- NOTE | 2019-05-28 14:57 | CONSULT ---
[facility] Psychiatric Consult - Data Date of interview: 05/28/19 Admission source: [facility] Identifying data: This is one of multiple admissions to [facility] for this 53 y/ o AA male self-referred for detoxification (ALEJANDRA issues : heroin, alcohol, cannabis, cocaine). Interviewed at [address] [place] [address]. Patient is , a father of six , homeless (fdc), unemployed and supported on welfare. Substance Abuse History: Discussed in this session. Details in current [facility] report as follows : Smoking history: Current every day smoker. Have you smoked in the past 12 months: Yes. Aproximately how many cigarettes per day: 10. Cigars Per Day: 10. Hx Chewing Tobacco Use: No. Initiated information on smoking cessation: Yes. 'Breaking Loose' booklet given: 05/27/19. - Substance & Tx. History. Hx Alcohol Use: Yes. Hx Substance Use: Yes. Substance Use Type : Alcohol, Cocaine, Marijuana. Hx Substance Use Treatment: Yes ([facility] 05/12/19 to 05/15/19). - Substances abused. Heroin. Substance route: Inhalation. Frequency: Daily. Amount used: 2 bags. Age of first use: 21. Date of last use : 05/10/19. Crack. Substance route: Smoking. Frequency: Daily. Amount used: $200. Age of first use: 21. Date of last use: 11/10/18. Alcohol. Substance route: Oral. Frequency: Daily. Amount used: 1 pint of Vodka. Age of first use: 13. Date of last use: 05/26/19. Marijuana/Hashish. Substance route: Smoking. Frequency: Daily. Amount used: 40$. Age of first use: 13. Date of last use: 11/17/18. Cocaine. Substance route: Inhalation. Frequency: Daily. Amount used: 1/2-1 gram. Age of first use: 16. Date of last use: 05/27/19 Medical History: Hypertension. Psychiatric History: Patient presents with a history of multiple psychiatric hospitalizations ([facility] [place]). Reportedly diagnosed with " Bipolar Disorder with Schizophrenia " and PTSD. Mr Victoria denies going to a psychiatrist in the community for OPD care. Patient was discharged (AMA) from [facility] in November 2018 on a regimen of risperidone 2 mg po bid. Chronically non-adherent to medications. " I sometimes go to emergeny rooms to get scripts." Patient denies history of suicide attempts. Physical/Sexual Abuse/Trauma History: Not discussed. Patient declines. Additional Comment: Urine drug screen results: THC-Marijuana, ZION-Cocaine, BZO- Benzodiazepines. Noted. Mental Status Exam - Mental Status Exam Alert and Oriented to: Time, Place, Person Cognitive Function: Good Patient Appearance: Disheveled Mood: Withdrawn, Anxious, Irritable Affect: Mood Congruent, Constricted Patient Behavior: Fatigued, Guarded Speech Pattern: Clear Voice Loudness: Normal Thought Process: Goal Oriented Thought Disorder: Not Present Hallucinations: Denies Suicidal Ideation: Denies Homicidal Ideation: Denies Insight/Judgement: Poor Sleep: Fair Appetite: Good Muscle strength/Tone: Normal Gait/Station: Normal Psychiatric Findings - Problem List ([place] 1, 2,3) (1) Alcohol dependence with uncomplicated withdrawal Current Visit: Yes Status: Acute (2) Cannabis dependence Current Visit: Yes Status: Chronic (3) Cocaine dependence Current Visit: Yes Status: Chronic Qualifiers: Substance use status: uncomplicated Qualified Code(s): F14.20 - Cocaine dependence, uncomplicated (4) Nicotine dependence Current Visit: Yes Status: Chronic Qualifiers: Nicotine product type: cigarettes Substance use status: uncomplicated Qualified Code(s): F17.210 - Nicotine dependence, cigarettes, uncomplicated (5) Substance induced mood disorder Current Visit: Yes Status: Chronic (6) Schizophrenia Current Visit: Yes Status: Chronic Qualifiers: Schizophrenia type: unspecified Qualified Code(s): F20.9 - Schizophrenia, unspecified (7) Non-compliance Current Visit: Yes Status: Chronic - Initial Treatment Plan Initial Treatment Plan: Records ([facility]) are revisited. Psychoeducation. Sleep hygiene. Detoxification. Support. AA meetings. Resumed : risperdal 1 mg po bid ( reduced). Side effects/benefits discussed with patient. Mr Victoria is made aware of risk of abnormal involuntary movements, dystonias, akathisia, dyskinesias, sexual dysfunction, galactorrhea, gynecomastia neuroleptic malignant syndrome and cardiovascular adverse events. Patient is in agreement with this plan of care. Gave verbal consent to MD. Goodman.
[2019-05-28 18:59] LABS: URINE APPEARANCE CLEAR; URINE BILIRUBIN NEGATIVE (NEGATIVE); URINE COLOR YELLOW; URINE GLUCOSE (UA) NEGATIVE (NEGATIVE); URINE KETONE NEGATIVE (NEGATIVE); URINE LEUK ESTERASE NEGATIVE (NEGATIVE); URINE NITRITE NEGATIVE (NEGATIVE); URINE PROTEIN NEGATIVE (NEGATIVE); URINE UROBILINOGEN 0.2 mg/dL (0.2-1.0)
[2019-05-28] MEDS: risperiDONE 1 MG TABLET (FP) PO SCH (22:09)
[2019-05-28] MEDS: MELATONIN 5 MG TABLETS PO PRN (22:09)
[2019-05-28] MEDS: THIAMINE HCL 100 MG TABLET (FP) PO SCH (22:09)
[2019-05-28] MEDS: METHOCARBAMOL 500 MG TABLET PO PRN (22:10)
[2019-05-28] MEDS ORDERED: cloNIDine HCL 0.1 MG TABLET PO ONE (22:28)
[2019-05-29] MEDS: diazePAM 5 MG TABLET PO SCH ×2 (05:18→17:55)
[2019-05-29] MEDS: amLODIPine BESYLATE 5 MG TABLET (FP) PO SCH (09:46)
[2019-05-29] MEDS: HYDROCHLOROTHIAZIDE 25 MG TABLET (FP) PO SCH (09:46)
[2019-05-29] MEDS: PRENATAL VITAMINS W/ FOLIC ACID TABLET (FP) PO SCH (09:46)
[2019-05-29] MEDS: NICOTINE 21 MG/24 HOURS TOPICAL PATCH TD SCH (09:48)
[2019-05-29] MEDS: METHOCARBAMOL 500 MG TABLET PO PRN (09:48)
[2019-05-29] MEDS: risperiDONE 1 MG TABLET (FP) PO SCH ×2 (09:49→22:31)
--- NOTE | 2019-05-29 13:28 | PN ---
[facility] CIWA - CIWA Score Nausea/Vomitin-No Nausea/No Vomiting Muscle Tremors: 2 Anxiety: 2 Agitation: 2 Paroxysmal Sweats: 1-Minimal Palms Moist Orientation: 0-Oriented Tacttile Disturbances: 0-None Auditory Disturbances: 0-None Visual Disturbances: 0-None Headache: 0-None Present CIWA-Ar Total Score: 7 S Progress Note (SOAP) Subjective: 53 years old male admitted on 05/27/19 for alcohol withdrawal sx management treated with valium detox regimen feeling better slept through the night discuss aftercare with staff Objective: 05/29/19 13:27 Vital Signs Temperature 98.2 F 05/29/19 13:24 Pulse Rate 70 05/29/19 13:24 Respiratory Rate 18 05/29/19 13:24 Blood Pressure 106/58 L 05/29/19 13:24 O2 Sat by Pulse Oximetry (%) Laboratory Last Values WBC 4.6 K/mm3 (4.0-10.0) 05/28/19 08:00 RBC 4.17 M/mm3 (4.00-5.60) 05/28/19 08:00 Hgb 11.3 GM/dL (11.7-16.9) L 05/28/19 08:00 Hct 35.3 % (35.4-49) L 05/28/19 08:00 MCV 84.7 fl (80-96) 05/28/19 08:00 MCH 27.1 pg (25.7-33.7) 05/28/19 08:00 MCHC 32.0 g/dl (32.0-35.9) 05/28/19 08:00 RDW 13.6 % (11.9-15.9) 05/28/19 08:00 Plt Count 163 K/MM3 (134-434) 05/28/19 08:00 MPV 11.6 fl (7.5-11.1) H 05/28/19 08:00 Sodium 138 mmol/L (136-145) 05/28/19 08:00 Potassium 4.3 mmol/L (3.5-5.1) 05/28/19 08:00 Chloride 105 mmol/L (98-107) 05/28/19 08:00 Carbon Dioxide 30 mmol/L (21-32) 05/28/19 08:00 Anion Gap 3 MMOL/L (8-16) L 05/28/19 08:00 BUN 11.9 mg/dL (7-18) 05/28/19 08:00 Creatinine 1.0 mg/dL (0.55-1.3) 05/28/19 08:00 Est GFR (CKD-EPI)AfAm 99.85 05/28/19 08:00 Est GFR (CKD-EPI)NonAf 86.15 05/28/19 08:00 Random Glucose 89 mg/dL (74-106) 05/28/19 08:00 Calcium 8.9 mg/dL (8.5-10.1) 05/28/19 08:00 Total Bilirubin 0.3 mg/dL (0.2-1) 05/28/19 08:00 AST 13 U/L (15-37) L 05/28/19 08:00 ALT 20 U/L (13-61) 05/28/19 08:00 Alkaline Phosphatase 58 U/L (45-117) 05/28/19 08:00 Total Protein 6.0 g/dl (6.4-8.2) L 05/28/19 08:00 Albumin 3.0 g/dl (3.4-5.0) L 05/28/19 08:00 Urine Color Yellow 05/28/19 15:01 Urine Appearance Clear 05/28/19 15:01 Urine pH 8.0 (5.0-8.0) D 05/28/19 15:01 Ur Specific [place] 1.013 (1.010-1.035) 05/28/19 15:01 Urine Protein Negative (NEGATIVE) 05/28/19 15:01 Urine Glucose (UA) Negative (NEGATIVE) 05/28/19 15:01 Urine Ketones Negative (NEGATIVE) 05/28/19 15:01 Urine Blood Negative (NEGATIVE) 05/28/19 15:01 Urine Nitrite Negative (NEGATIVE) 05/28/19 15:01 Urine Bilirubin Negative (NEGATIVE) 05/28/19 15:01 Urine Urobilinogen 0.2 mg/dL (0.2-1.0) 05/28/19 15:01 Ur Leukocyte Esterase Negative (NEGATIVE) 05/28/19 15:01 RPR Titer Nonreactive (NONREACTIVE) 05/28/19 08:20 HIV 1&2 Antibody Screen Negative 05/28/19 08:00 HIV P24 Antigen Negative 05/28/19 08:00 lab noted Assessment: 05/29/19 13:27 alcohol withdrawal sx Plan: continue valium detox regimen
[2019-05-29 20:50] VITALS: TEMP 98.6
[2019-05-29] MEDS: THIAMINE HCL 100 MG TABLET (FP) PO SCH (22:31)
[2019-05-30] MEDS ORDERED: diazePAM 5 MG TABLET PO ONE (06:00)
[2019-05-30 09:17] VITALS: BP 145/81; PULSE 70
--- NOTE | 2019-05-30 11:06 | DS ---
[facility] Detox Discharge Summary Admission Date: 05/27/19 Discharge Date: 05/30/19 - History Present History: Alcohol Dependence Additional Comments: 53 years old male admitted on 05/27/19 for alcohol withdrawal sx management treated with valium detox regimen patient is alert oriented x 3 cardiac s1s2 regular rate rhythm respiratory clear lung bilaterally on auscultation abdomen soft no rebound tenderness - Physical Exam Results Vital Signs: Vital Signs Temperature 98.6 F 05/30/19 09:17 Pulse Rate 70 05/30/19 09:17 Respiratory Rate 18 05/30/19 09:17 Blood Pressure 145/81 05/30/19 09:17 O2 Sat by Pulse Oximetry (%) Pertinent Admission Physical Exam Findings: alcohol withdrawal sx Laboratory Last Values WBC 4.6 K/mm3 (4.0-10.0) 05/28/19 08:00 RBC 4.17 M/mm3 (4.00-5.60) 05/28/19 08:00 Hgb 11.3 GM/dL (11.7-16.9) L 05/28/19 08:00 Hct 35.3 % (35.4-49) L 05/28/19 08:00 MCV 84.7 fl (80-96) 05/28/19 08:00 MCH 27.1 pg (25.7-33.7) 05/28/19 08:00 MCHC 32.0 g/dl (32.0-35.9) 05/28/19 08:00 RDW 13.6 % (11.9-15.9) 05/28/19 08:00 Plt Count 163 K/MM3 (134-434) 05/28/19 08:00 MPV 11.6 fl (7.5-11.1) H 05/28/19 08:00 Sodium 138 mmol/L (136-145) 05/28/19 08:00 Potassium 4.3 mmol/L (3.5-5.1) 05/28/19 08:00 Chloride 105 mmol/L (98-107) 05/28/19 08:00 Carbon Dioxide 30 mmol/L (21-32) 05/28/19 08:00 Anion Gap 3 MMOL/L (8-16) L 05/28/19 08:00 BUN 11.9 mg/dL (7-18) 05/28/19 08:00 Creatinine 1.0 mg/dL (0.55-1.3) 05/28/19 08:00 Est GFR (CKD-EPI)AfAm 99.85 05/28/19 08:00 Est GFR (CKD-EPI)NonAf 86.15 05/28/19 08:00 Random Glucose 89 mg/dL (74-106) 05/28/19 08:00 Calcium 8.9 mg/dL (8.5-10.1) 05/28/19 08:00 Total Bilirubin 0.3 mg/dL (0.2-1) 05/28/19 08:00 AST 13 U/L (15-37) L 05/28/19 08:00 ALT 20 U/L (13-61) 05/28/19 08:00 Alkaline Phosphatase 58 U/L (45-117) 05/28/19 08:00 Total Protein 6.0 g/dl (6.4-8.2) L 05/28/19 08:00 Albumin 3.0 g/dl (3.4-5.0) L 05/28/19 08:00 Urine Color Yellow 05/28/19 15:01 Urine Appearance Clear 05/28/19 15:01 Urine pH 8.0 (5.0-8.0) D 05/28/19 15:01 Ur Specific [place] 1.013 (1.010-1.035) 05/28/19 15:01 Urine Protein Negative (NEGATIVE) 05/28/19 15:01 Urine Glucose (UA) Negative (NEGATIVE) 05/28/19 15:01 Urine Ketones Negative (NEGATIVE) 05/28/19 15:01 Urine Blood Negative (NEGATIVE) 05/28/19 15:01 Urine Nitrite Negative (NEGATIVE) 05/28/19 15:01 Urine Bilirubin Negative (NEGATIVE) 05/28/19 15:01 Urine Urobilinogen 0.2 mg/dL (0.2-1.0) 05/28/19 15:01 Ur Leukocyte Esterase Negative (NEGATIVE) 05/28/19 15:01 RPR Titer Nonreactive (NONREACTIVE) 05/28/19 08:20 HIV 1&2 Antibody Screen Negative 05/28/19 08:00 HIV P24 Antigen Negative 05/28/19 08:00 lab noted - Treatment Hospital Course: Detox Protocol Followed, Detoxed Safely, Responded well, Discharged Condition Good, Rehab Referral Accepted Patient has Accepted a Rehab Referral to: [email or web address] - Medication Discharge Medications: Ambulatory Orders Risperidone [Risperdal -] 2 mg PO BID 12/11/18 - AMA Did Patient Leave Against Medical Advice: No CIWA Score - CIWA Score Nausea/Vomitin-No Nausea/No Vomiting Muscle Tremors: 1-None Visible, but [place] Anxiety: 1-Mildly Anxious Agitation: 1-Slight > Activity Paroxysmal Sweats: No Perspiration Orientation: 0-Oriented Tacttile Disturbances: 0-None Auditory Disturbances: 0-None Visual Disturbances: 0-None Headache: 0-None Present CIWA-Ar Total Score: 3
== END 2019-05-30 09:54 | disposition home or self-care (01) | DRG 773 ==
LOC: YASAS 08:25 → Y3N 09:42
PROVIDERS: ADMIT Allergy & Immunology; ATTEND Allergy & Immunology
PROC: HZ2ZZZZ Detoxification Services for Substance Abuse Treatment (ICD-10-PCS; principal; 2019-05-27)
DX: F10.230 Alcohol dependence with withdrawal, uncomplicated (principal); F11.20 Opioid dependence, uncomplicated; F14.20 Cocaine dependence, uncomplicated; F12.20 Cannabis dependence, uncomplicated; F17.210 Nicotine dependence, cigarettes, uncomplicated; F19.24 Other psychoactive substance dependence with psychoactive substance-induced mood disorder; F20.9 Schizophrenia, unspecified; F31.9 Bipolar disorder, unspecified; I10 Essential (primary) hypertension; M54.5 Low back pain; R63.4 Abnormal weight loss; Z68.25 Body mass index [BMI] 25.0-25.9, adult; Z91.19 Patient's noncompliance with other medical treatment and regimen; Z59.0 Homelessness
CPT/HCPCS: 36415; 80053; 81003; 85027; 86593; 87389; J0735; J2794